=== PATIENT | female | born 1940 | race Two or more races ===

== ENCOUNTER 2017-08-21 08:45 | Outpatient (CLI) | payer OTHER ==
[~2017-08-21 08:45] MED LIST: NABUMETONE500 MG PO; PERCOCET 5/3251 TAB PO; TIZANIDINE HCL4 M1
== END 2017-08-21 08:53 | disposition home or self-care (01) ==
LOC: MAMO-SONO 08:45
DX: Z12.31 Encounter for screening mammogram for malignant neoplasm of breast (principal); Z87.898 Personal history of other specified conditions; Z12.39 Encounter for other screening for malignant neoplasm of breast

== ENCOUNTER 2017-09-17 10:35 | Outpatient (CLI) | payer OTHER | END 2017-09-17 11:00 | disposition home or self-care (01) | LOC: NUCLEAR 10:35 | DX: M81.0 Age-related osteoporosis without current pathological fracture (principal) ==

== ENCOUNTER 2017-11-25 13:34 | Outpatient (CLI) | payer OTHER | END 2017-11-25 13:42 | disposition home or self-care (01) | LOC: RAD 501 13:34 | DX: S22.000S Wedge compression fracture of unspecified thoracic vertebra, sequela (principal); S32.040A Wedge compression fracture of fourth lumbar vertebra, initial encounter for closed fracture; Z84.1 Family history of disorders of kidney and ureter; M17.11 Unilateral primary osteoarthritis, right knee ==

== ENCOUNTER 2018-02-17 11:40 | Outpatient (CLI) | payer OTHER | END 2018-02-17 13:02 | disposition home or self-care (01) | LOC: RAD 11:40 | DX: M75.82 Other shoulder lesions, left shoulder (principal) ==

== ENCOUNTER 2018-11-20 14:20 | Outpatient (CLI) | payer OTHER | END 2018-11-20 14:28 | disposition home or self-care (01) | LOC: MAMO-SONO 14:20 | DX: Z12.31 Encounter for screening mammogram for malignant neoplasm of breast (principal); Z87.898 Personal history of other specified conditions; N63.10 Unspecified lump in the right breast, unspecified quadrant; N63.20 Unspecified lump in the left breast, unspecified quadrant; H90.3 Sensorineural hearing loss, bilateral; H80.83 Other otosclerosis, bilateral; M81.0 Age-related osteoporosis without current pathological fracture; E78.49 Other hyperlipidemia; K31.83 Achlorhydria; D51.1 Vitamin B12 deficiency anemia due to selective vitamin B12 malabsorption with proteinuria; D51.0 Vitamin B12 deficiency anemia due to intrinsic factor deficiency; D68.8 Other specified coagulation defects; T38.0X5A Adverse effect of glucocorticoids and synthetic analogues, initial encounter; D72.828 Other elevated white blood cell count ==

== ENCOUNTER 2019-05-27 10:21 | Outpatient (CLI) | payer OTHER | END 2019-05-27 11:25 | disposition home or self-care (01) | LOC: NUCLEAR 10:21 | DX: I67.2 Cerebral atherosclerosis (principal); E21.2 Other hyperparathyroidism; H90.3 Sensorineural hearing loss, bilateral; H80.83 Other otosclerosis, bilateral; T38.0X5A Adverse effect of glucocorticoids and synthetic analogues, initial encounter; M81.0 Age-related osteoporosis without current pathological fracture; E78.49 Other hyperlipidemia; K31.83 Achlorhydria; D72.828 Other elevated white blood cell count; D68.8 Other specified coagulation defects; D51.1 Vitamin B12 deficiency anemia due to selective vitamin B12 malabsorption with proteinuria; D51.0 Vitamin B12 deficiency anemia due to intrinsic factor deficiency; I67.89 Other cerebrovascular disease ==

== ENCOUNTER 2019-10-27 10:32 | Outpatient (CLI) | payer OTHER | END 2019-10-27 10:37 | disposition home or self-care (01) | LOC: RAD 10:32 | PROVIDERS: ATTEND Specialist | DX: M18.11 Unilateral primary osteoarthritis of first carpometacarpal joint, right hand (principal); M18.12 Unilateral primary osteoarthritis of first carpometacarpal joint, left hand; M19.141 Post-traumatic osteoarthritis, right hand; M19.142 Post-traumatic osteoarthritis, left hand ==

== ENCOUNTER → 2020-02-04 | Outpatient (CLI) | payer OTHER | END | disposition home or self-care (01) | LOC: MAMO-SONO 07:45 → SONOGRAMA 07:52 | PROVIDERS: ATTEND Specialist | DX: Q44.6 Cystic disease of liver (principal); K76.0 Fatty (change of) liver, not elsewhere classified ==

== ENCOUNTER 2020-05-24 09:35 | Outpatient (CLI) | payer OTHER | END 2020-05-24 10:02 | disposition home or self-care (01) | LOC: TOM 09:35 → MRI 10:15 | PROVIDERS: ATTEND Specialist | DX: N20.0 Calculus of kidney (principal); M51.9 Unspecified thoracic, thoracolumbar and lumbosacral intervertebral disc disorder ==

== ENCOUNTER 2020-07-21 10:24 | Outpatient (CLI) | payer OTHER | END 2020-07-21 10:46 | disposition home or self-care (01) | LOC: TOM 10:24 | PROVIDERS: ATTEND Specialist | DX: Z12.31 Encounter for screening mammogram for malignant neoplasm of breast (principal); M51.26 Other intervertebral disc displacement, lumbar region; R07.89 Other chest pain; J45.998 Other asthma ==

== ENCOUNTER 2020-11-15 12:49 | Outpatient (CLI) | payer OTHER | END 2020-11-15 12:53 | disposition home or self-care (01) | LOC: NUCLEAR 12:49 | PROVIDERS: ATTEND Specialist | DX: M81.0 Age-related osteoporosis without current pathological fracture (principal) ==

== ENCOUNTER 2020-12-12 08:48 | Outpatient (CLI) | payer OTHER | END 2020-12-12 08:54 | disposition home or self-care (01) | LOC: TOM 08:48 | PROVIDERS: ATTEND Internal Medicine Hematology & Oncology | DX: N20.0 Calculus of kidney (principal); K76.89 Other specified diseases of liver; D51.0 Vitamin B12 deficiency anemia due to intrinsic factor deficiency; D51.1 Vitamin B12 deficiency anemia due to selective vitamin B12 malabsorption with proteinuria; D68.8 Other specified coagulation defects; D72.828 Other elevated white blood cell count; K31.83 Achlorhydria; E78.49 Other hyperlipidemia; N81.0 Urethrocele; T38.0X5A Adverse effect of glucocorticoids and synthetic analogues, initial encounter; H80.83 Other otosclerosis, bilateral; H90.3 Sensorineural hearing loss, bilateral; E21.2 Other hyperparathyroidism; R63.4 Abnormal weight loss | CPT/HCPCS: 71260; 74177; Q9965 ==

== ENCOUNTER → 2021-04-04 | Outpatient (CLI) | payer OTHER | END | disposition home or self-care (01) | LOC: SONOGRAMA 10:24 | PROVIDERS: ATTEND Internal Medicine Hematology & Oncology | DX: E04.2 Nontoxic multinodular goiter (principal); D51.0 Vitamin B12 deficiency anemia due to intrinsic factor deficiency; D51.1 Vitamin B12 deficiency anemia due to selective vitamin B12 malabsorption with proteinuria; D68.8 Other specified coagulation defects; D72.828 Other elevated white blood cell count; K31.83 Achlorhydria; E78.49 Other hyperlipidemia; M81.0 Age-related osteoporosis without current pathological fracture; T38.0X5A Adverse effect of glucocorticoids and synthetic analogues, initial encounter; H80.83 Other otosclerosis, bilateral; H90.3 Sensorineural hearing loss, bilateral; E21.2 Other hyperparathyroidism; R63.4 Abnormal weight loss; R97.0 Elevated carcinoembryonic antigen [CEA]; J45.998 Other asthma ==

== ENCOUNTER 2021-10-11 09:21 | Outpatient (CLI) | payer OTHER | END 2021-10-11 09:29 | disposition home or self-care (01) | LOC: MAMO-SONO 09:21 | PROVIDERS: ATTEND Internal Medicine Hematology & Oncology | DX: Z12.31 Encounter for screening mammogram for malignant neoplasm of breast (principal); N63.0 Unspecified lump in unspecified breast; N64.4 Mastodynia ==

== ENCOUNTER 2021-12-13 12:15 | Outpatient (CLI) | payer OTHER | END 2021-12-13 12:25 | disposition home or self-care (01) | LOC: TOM 12:15 | PROVIDERS: ATTEND Specialist | DX: K11.20 Sialoadenitis, unspecified (principal); K11.0 Atrophy of salivary gland ==

== ENCOUNTER 2021-12-14 11:07 | Outpatient (CLI) | payer OTHER | END 2021-12-14 11:09 | disposition home or self-care (01) | LOC: LAB 11:07 | PROVIDERS: ATTEND Specialist | DX: N39.9 Disorder of urinary system, unspecified (principal); M00.80 Arthritis due to other bacteria, unspecified joint; E11.69 Type 2 diabetes mellitus with other specified complication; D64.89 Other specified anemias; K11.0 Atrophy of salivary gland; K11.20 Sialoadenitis, unspecified ==

== ENCOUNTER 2021-12-20 07:05 | Outpatient (CLI) | payer OTHER | END 2021-12-26 08:39 | disposition home or self-care (01) | LOC: TOM 07:05 | PROVIDERS: ATTEND Specialist | DX: C81.3 Lymphocyte depleted Hodgkin lymphoma (principal); C81.71 Other Hodgkin lymphoma, lymph nodes of head, face, and neck | CPT/HCPCS: 70491; Q9965 ==

== ENCOUNTER 2022-06-12 09:47 | Outpatient (CLI) | payer OTHER | END 2022-06-12 09:48 | disposition home or self-care (01) | LOC: NUCLEAR 09:47 | PROVIDERS: ATTEND Specialist | DX: I77.9 Disorder of arteries and arterioles, unspecified (principal); I65.29 Occlusion and stenosis of unspecified carotid artery ==

== ENCOUNTER 2022-07-02 08:51 | Outpatient (CLI) | payer OTHER | END 2022-07-02 08:55 | disposition home or self-care (01) | LOC: SONOGRAMA 08:51 | PROVIDERS: ATTEND Specialist | DX: K80.20 Calculus of gallbladder without cholecystitis without obstruction (principal) ==

== ENCOUNTER 2022-09-10 10:16 | Outpatient (CLI) | payer OTHER | END 2022-09-10 10:23 | disposition home or self-care (01) | LOC: RAD 10:16 | PROVIDERS: ATTEND Podiatrist | DX: G47.61 Periodic limb movement disorder (principal); M19.079 Primary osteoarthritis, unspecified ankle and foot; J66.8 Airway disease due to other specific organic dusts ==

== ENCOUNTER 2023-05-28 10:55 | Outpatient (CLI) | payer OTHER | END 2023-05-28 11:09 | disposition home or self-care (01) | LOC: MAMO-SONO 10:55 | PROVIDERS: ATTEND Internal Medicine Hematology & Oncology | DX: N63.0 Unspecified lump in unspecified breast (principal); N64.4 Mastodynia ==

== ENCOUNTER → 2023-06-18 | Outpatient (CLI) | payer OTHER | END | disposition home or self-care (01) | LOC: NUCLEAR 12:19 | PROVIDERS: ATTEND Specialist | DX: M81.0 Age-related osteoporosis without current pathological fracture (principal); Z13.820 Encounter for screening for osteoporosis ==

== ENCOUNTER 2024-06-14 13:40 | Outpatient (CLI) | payer OTHER | END 2024-06-14 13:46 | disposition home or self-care (01) | LOC: RAD 13:40 | PROVIDERS: ATTEND Specialist | DX: M19.042 Primary osteoarthritis, left hand (principal) ==

== ENCOUNTER 2024-06-16 11:08 | Outpatient (CLI) | payer OTHER | END 2024-06-16 11:14 | disposition home or self-care (01) | LOC: MAMO-SONO 11:08 | PROVIDERS: ATTEND Internal Medicine Hematology & Oncology | DX: D51.0 Vitamin B12 deficiency anemia due to intrinsic factor deficiency (principal); D51.1 Vitamin B12 deficiency anemia due to selective vitamin B12 malabsorption with proteinuria; D68.8 Other specified coagulation defects; D72.828 Other elevated white blood cell count; K31.83 Achlorhydria; E78.5 Hyperlipidemia, unspecified; M81.0 Age-related osteoporosis without current pathological fracture; T38.0X5A Adverse effect of glucocorticoids and synthetic analogues, initial encounter; H80.83 Other otosclerosis, bilateral; H90.3 Sensorineural hearing loss, bilateral; E21.2 Other hyperparathyroidism; R63.4 Abnormal weight loss; R97.0 Elevated carcinoembryonic antigen [CEA]; D11.0 Benign neoplasm of parotid gland; Z12.31 Encounter for screening mammogram for malignant neoplasm of breast ==

== ENCOUNTER 2024-08-10 10:42 | Outpatient (CLI) | payer OTHER | END 2024-08-10 10:46 | disposition home or self-care (01) | LOC: SONOGRAMA 10:42 | PROVIDERS: ATTEND Specialist | DX: M75.122 Complete rotator cuff tear or rupture of left shoulder, not specified as traumatic (principal) ==

== ENCOUNTER 2024-09-03 09:14 | Outpatient (CLI) | payer OTHER | END 2024-09-03 09:37 | disposition home or self-care (01) | LOC: TOM 09:14 | PROVIDERS: ATTEND Internal Medicine Hematology & Oncology | DX: D51.0 Vitamin B12 deficiency anemia due to intrinsic factor deficiency (principal); D51.1 Vitamin B12 deficiency anemia due to selective vitamin B12 malabsorption with proteinuria; D68.8 Other specified coagulation defects; D72.828 Other elevated white blood cell count; K31.83 Achlorhydria; E78.5 Hyperlipidemia, unspecified; M81.0 Age-related osteoporosis without current pathological fracture; H80.83 Other otosclerosis, bilateral; H90.3 Sensorineural hearing loss, bilateral; E21.2 Other hyperparathyroidism; R63.4 Abnormal weight loss; R97.0 Elevated carcinoembryonic antigen [CEA]; D11.0 Benign neoplasm of parotid gland; S46.012A Strain of muscle(s) and tendon(s) of the rotator cuff of left shoulder, initial encounter; T38.0X5A Adverse effect of glucocorticoids and synthetic analogues, initial encounter; X58.XXXA Exposure to other specified factors, initial encounter; Y93.9 Activity, unspecified; Y92.9 Unspecified place or not applicable; Y99.9 Unspecified external cause status | CPT/HCPCS: 71270; 74178; Q9965 ==

== ENCOUNTER 2024-11-23 10:08 | Outpatient (CLI) | payer OTHER | END 2024-11-23 10:29 | disposition home or self-care (01) | LOC: SONOGRAMA 10:08 | PROVIDERS: ATTEND Specialist | DX: N93.9 Abnormal uterine and vaginal bleeding, unspecified (principal); R93.89 Abnormal findings on diagnostic imaging of other specified body structures ==

== ENCOUNTER 2025-01-19 10:57 | Outpatient (CLI) | payer OTHER | END 2025-01-19 11:01 | disposition home or self-care (01) | LOC: RAD 10:57 | PROVIDERS: ATTEND Orthopaedic Surgery | DX: M25.511 Pain in right shoulder (principal); M25.512 Pain in left shoulder ==